=== PATIENT | female | born 1945 | race Two or more races ===

== ENCOUNTER 2022-01-30 19:11 | Inpatient (IN) | payer OTHER ==
[~2022-01-30] VITALS: Ht 160 cm; Wt 62.6 kg
[2022-01-30] MEDS ORDERED: IV NS 0.9% 500 ML BAG IV ONE (21:00)
[2022-01-30 21:23] LABS: BASOPHILS % (AUTO) 0.2 % (0.0-2.0); HEMATOCRIT 40 % (33-45); HEMOGLOBIN 13.2 g/dL (11.5-14.8); LYMPHOCYTES # (AUTO) 0.7 K/uL (0.8-4.8); LYMPHOCYTES % (AUTO) 7.8 % (20.0-44.0); MEAN CORPUSCULAR HGB CONC 33 g/dl (31.0-36.0); MEAN CORPUSCULAR VOLUME 98 fL (82-100); MONOCYTES % (AUTO) 11.6 % (2.0-12.0); NEUTROPHILS # (AUTO) 7.2 K/uL (1.8-8.9); NEUTROPHILS % (AUTO) 80.4 % (43.0-81.0); PLATELET COUNT (AUTO) 165 K/uL (150-450); RED BLOOD CELL COUNT(AUTO) 4.09 MIL/uL (4.0-5.2)
[2022-01-30 21:32] LABS: CALCIUM, SERUM 8.7 mg/dL (8.5-10.1); CARBON DIOXIDE 25 mmol/L (21-32); CHLORIDE 102 mmol/L (98-107); GLUCOSE 107 mg/dL (74-106); POTASSIUM 3.5 mmol/L (3.5-5.1); SODIUM SERUM 137 mmol/L (136-145); UREA NITROGEN, BLOOD 35 mg/dL (7-18)
[2022-01-30 21:37] LABS: ALANINE AMINOTRANSFERASE 95 U/L (12-78); ALBUMIN 3.2 g/dL (3.4-5.0); ALKALINE PHOSPHATASE 66 U/L (46-116); ASPARTATE AMINOTRANSFERASE 215 U/L (15-37); BILIRUBIN,DIRECT 0.3 mg/dL (0.0-0.2); LIPASE 13 U/L (73-393); TOTAL PROTEIN, SERUM 7.5 g/dL (6.4-8.2)
[2022-01-30] MEDS ORDERED: IOHEXOL-300 100 ML VIAL IV ONE (21:46)
[2022-01-30] MEDS ORDERED: IV NS 0.9% 250 ML IV ONE (21:47)
[2022-01-30 22:20] LABS: BILIRUBIN,URINE SMALL (NEGATIVE); COLOR,URINE YELLOW (YELLOW); LEUKOCYTE ESTERASE ,URINE NEGATIVE (NEGATIVE); NITRITE, URINE NEGATIVE (NEGATIVE); PROTEIN,URINE 100 mg/dl (NEGATIVE); UGLUCOSE NEGATIVE (NEGATIVE); UROBILINOGEN,URINE 0.2 EU/dL (0.2)
[2022-01-30] MEDS ORDERED: Z GUARD REMEDY 4 OZ OINT TP PRN (22:30)
[2022-01-30] MEDS ORDERED: ONDANSETRON HCL/PF 4 MG/2 ML VIAL IVP PRN (22:30)
[2022-01-30] MEDS ORDERED: HYDROCODONE/APAP 5/325MG TABLET PO PRN (22:30)
[2022-01-30] MEDS ORDERED: ACETAMINOPHEN 325 MG TABLET PO PRN (22:30)
[2022-01-30] MEDS ORDERED: MAGNESIUM HYDROXIDE 30 ML UDC PO PRN (22:30)
[2022-01-30] MEDS ORDERED: TEMAZEPAM 15 MG CAPSULE PO PRN (22:30)
[2022-01-30] MEDS ORDERED: MORPHINE SULFATE INJ 2 MG/ML DISP.SYRIN IV PRN (22:30)
[2022-01-30] MEDS ORDERED: MAG HYDROX/AL HYDROX/SIMETH 30 ML UDC PO PRN (22:30)
[2022-01-30 22:55] LABS: BACTERIA,URINE Moderate /HPF (None Seen); SQUAMOUS EPITHELIAL CELL,UR Many /HPF (None Seen)
[2022-01-30 22:56] LABS: COARSE GRANULAR CASTS,URINE Few /LPF (None Seen)
[2022-01-30] MEDS ORDERED: ALBUTEROL FS 2.5 MG/3 ML VIAL.NEB NEB PRN (23:00)
[2022-01-31 02:30] VITALS: BP 114/74
[2022-01-31] MEDS: IV NS 0.9% 1,000 ML IV PRN ×2 (03:12→17:35)
[2022-01-31 04:00] VITALS: BP 128/58
[2022-01-31 06:32] LABS: BASOPHILS % (AUTO) 0.1 % (0.0-2.0); HEMATOCRIT 37 % (33-45); HEMOGLOBIN 12.3 g/dL (11.5-14.8); LYMPHOCYTES % (AUTO) 10.6 % (20.0-44.0); MEAN CORPUSCULAR HGB CONC 34 g/dl (31.0-36.0); MEAN CORPUSCULAR VOLUME 97 fL (82-100); MONOCYTES # (AUTO) 1.1 K/uL (0.1-1.30); MONOCYTES % (AUTO) 12.4 % (2.0-12.0); NEUTROPHILS # (AUTO) 6.9 K/uL (1.8-8.9); NEUTROPHILS % (AUTO) 76.9 % (43.0-81.0); PLATELET COUNT (AUTO) 137 K/uL (150-450); RED BLOOD CELL COUNT(AUTO) 3.79 MIL/uL (4.0-5.2)
[2022-01-31] MEDS ORDERED: PANTOPRAZOLE 40 MG TABLET.DR PO SCH (07:30)
[2022-01-31 07:40] LABS: CALCIUM, SERUM 8.7 mg/dL (8.5-10.1); CARBON DIOXIDE 22 mmol/L (21-32); CHLORIDE 101 mmol/L (98-107); CREATININE 0.9 mg/dL (0.6-1.3); GLUCOSE 78 mg/dL (74-106); MAGNESIUM 2.2 mg/dL (1.8-2.4); PHOSPHORUS 3.5 mg/dL (2.5-4.9); POTASSIUM 3.6 mmol/L (3.5-5.1); SODIUM SERUM 136 mmol/L (136-145); UREA NITROGEN, BLOOD 33 mg/dL (7-18)
[2022-01-31] MEDS ORDERED: ASPI-1420 PO (07:54)
[2022-01-31] MEDS ORDERED: POLY17PO4 PO (07:54)
[2022-01-31] MEDS ORDERED: DOCU250C14 PO (07:54)
[2022-01-31] MEDS ORDERED: OMEP20CA15 PO (07:54)
[2022-01-31] MEDS ORDERED: ACET-2605 PO (07:54)
[2022-01-31] MEDS ORDERED: FLUT1BLS12 IH (07:54)
[2022-01-31] MEDS ORDERED: FLUT16SP16 (07:54)
[2022-01-31] MEDS ORDERED: ALBU8.5H8 IH (07:54)
[2022-01-31] MEDS ORDERED: MECL-182 PO (07:54)
[2022-01-31] MEDS ORDERED: MELO-105 PO (07:54)
[2022-01-31] MEDS ORDERED: TIOT4MIS2 IH (07:54)
[2022-01-31] MEDS ORDERED: HYDR25SU33 RC (07:54)
[2022-01-31] MEDS ORDERED: CLOT15CR27 TP (07:54)
[2022-01-31] MEDS ORDERED: NICO-676 TD (07:54)
[2022-01-31] MEDS ORDERED: DICL100G26 TP (07:54)
[2022-01-31 08:00] VITALS: BP 101/50
[2022-01-31 08:18] LABS: THYROID STIMULATING HORMONE 0.555 uIU/mL (0.358-3.74)
[2022-01-31 08:45] LABS: BILIRUBIN,DIRECT 0.2 mg/dL (0.0-0.2); BILIRUBIN,TOTAL 1.1 mg/dL (0.2-1.0); TOTAL PROTEIN, SERUM 6.9 g/dL (6.4-8.2)
[2022-01-31] MEDS ORDERED: ATORVASTATIN 10 MG TABLET PO SCH (09:00)
[2022-01-31] MEDS ORDERED: ASPIRIN 81 MG TAB.CHEW PO SCH (09:00)
[2022-01-31 16:09] VITALS: BP 109/56
[2022-01-31 20:00] VITALS: BP 98/52
== END 2022-01-31 23:25 | disposition short-term general hospital (02) | DRG 640 ==
LOC: ER 19:13 → TELE 01-31 01:07
PROVIDERS: ADMIT Nurse Practitioner Acute Care; ATTEND Nurse Practitioner Acute Care
DX: E86.0 Dehydration (principal); I21.A1 Myocardial infarction type 2; N17.0 Acute kidney failure with tubular necrosis; M62.82 Rhabdomyolysis; E44.0 Moderate protein-calorie malnutrition; L97.318 Non-pressure chronic ulcer of right ankle with other specified severity; R62.7 Adult failure to thrive; Z90.49 Acquired absence of other specified parts of digestive tract; I10 Essential (primary) hypertension; S40.211A Abrasion of right shoulder, initial encounter; I73.9 Peripheral vascular disease, unspecified; Z90.710 Acquired absence of both cervix and uterus; S60.211A Contusion of right wrist, initial encounter; S00.83XA Contusion of other part of head, initial encounter; W19.XXXA Unspecified fall, initial encounter; Y93.9 Activity, unspecified; Y92.009 Unspecified place in unspecified non-institutional (private) residence as the place of occurrence of the external cause; S40.011A Contusion of right shoulder, initial encounter; R74.01 Elevation of levels of liver transaminase levels; E88.09 Other disorders of plasma-protein metabolism, not elsewhere classified; Z87.891 Personal history of nicotine dependence; Z68.24 Body mass index [BMI] 24.0-24.9, adult; Z91.81 History of falling; Z20.822 Contact with and (suspected) exposure to COVID-19
CPT/HCPCS: 36415; 70450-TC; 71045-TC; 72125-TC; 72190-TC; 73110; 80048-TC; 80061-TC; 80076-TC; 81001; 82550-TC; 82553; 82728-TC; 83540-TC; 83605-TC; 83690-TC; 83735-TC; 84100-TC; 84439-TC; 84443-TC; 84484-TC; 85025-TC; 87040-TC; 87081-TC; 87086-TC; 93307-TC; 94799-TC; 97116-TC; 97530-TC; C9803; G0378; J7030; J7040; J7050; Q9967